=== PATIENT | male | born 1965 ===

== ENCOUNTER 2017-05-27 18:54 | Emergency (ER) | payer OTHER ==
[2017-05-27 19:13] VITALS: TEMP 98.4; O2SAT 98
--- NOTE | 2017-05-27 19:51 | ED PDOC ---
Arrival/HPI - General Chief Complaint: ENT Problem Time Seen by Provider: 05/27/17 19:17 Historian: Patient, Spouse - History of Present Illness Narrative History of Present Illness (Text): 05/27/17 19:46 This 51 yo female presents to this ED c/o right ear pain x 3 months. Patient admits using ear drops for wax last week, but it made the ear problem worse. He has a mild decreased hearing for his right ear. Denies other complains. Time/Duration: Other (see hpi) Context: Home Past Medical History - Provider Review Nursing Documentation Reviewed: Yes - Cardiac Hx Cardiac Disorders: No - Pulmonary Hx Respiratory Disorders: No - Neurological Hx Neurological Disorder: No - HEENT Hx HEENT Disorder: No - Renal Hx Renal Disorder: No - Endocrine/Metabolic Hx Endocrine Disorders: No - Hematological/Oncological Hx Blood Disorders: No - Integumentary Hx Dermatological Disorder: No - Musculoskeletal/Rheumatological Hx Musculoskeletal Disorders: No - Gastrointestinal Hx Gastrointestinal Disorders: No - Genitourinary/Gynecological Hx Genitourinary Disorders: No - Psychiatric Hx Psychophysiologic Disorder: No Hx Substance Use: No Family/Social History - Physician Review Nursing Documentation Reviewed: Yes Family/Social History: No Known Family HX Smoking Status: Never Smoked Hx Alcohol Use: No Hx Substance Use: No Allergies/Home Meds Allergies/Adverse Reactions: Allergies No Known Allergies Allergy (Verified 05/27/17 19:13) Home Medications: Home Meds Medication Instructions Recorded Confirmed No Known Home Med 05/27/17 05/27/17 Review of Systems - Review of Systems Constitutional: Normal. absent: Fatigue, Weight Change, Fevers Eyes: Normal ENT: Other (see hpi) Respiratory: Normal. absent: SOB, Cough, Sputum Cardiovascular: Normal. absent: Chest Pain Gastrointestinal: Normal. absent: Abdominal Pain, Nausea, Vomiting Genitourinary Male: Normal Musculoskeletal: Normal Skin: Normal Neurological: Normal Endocrine: Normal Hemo/Lymphatic: Normal Psychiatric: Normal Physical Exam Vital Signs Temp Pulse Resp BP Pulse Ox 05/27/17 19:54 67 17 122/70 98 05/27/17 19:07 98.4 F 63 18 98 Temperature: Afebrile Blood Pressure: Normal Pulse: Regular Respiratory Rate: Normal Appearance: Positive for: Well-Appearing, Non-Toxic, Comfortable Pain Distress: None Mental Status: Positive for: Alert and Oriented X 3 - Systems Exam Head: Present: Atraumatic, Normocephalic Pupils: Present: PERRL Extroacular Muscles: Present: EOMI Conjunctiva: Present: Normal Ears: Present: Other ((+) right ear cerumen impaction) Mouth: Present: Moist Mucous Membranes Pharnyx: Present: Normal. No: ERYTHEMA, EXUDATE, TONSILS ENLARGED Neck: Present: Normal Range of Motion Respiratory/Chest: Present: Clear to Auscultation, Good Air Exchange, Respiratory Distress. No: Accessory Muscle Use, Wheezes, Decreased Breath Sounds, Rales, Retracting, Rhonchi Cardiovascular: Present: Regular Rate and Rhythm, Normal S1, S2. No: Murmurs Upper Extremity: Present: Normal Inspection, Normal ROM, NORMAL PULSES, Neurovascularly Intact, Capillary Refill < 2s. No: Edema Lower Extremity: Present: Normal Inspection, NORMAL PULSES, Normal ROM, Neurovascularly Intact, Capillary Refill < 2 s. No: Edema, CALF TENDERNESS Neurological: Present: GCS=15, CN II-XII Intact, Speech Normal, Motor Func Grossly Intact, Normal Sensory Function, Normal Cerebellar Funct, Gait Normal Skin: Present: Warm, Dry, Normal Color. No: Rashes Psychiatric: Present: Alert, Oriented x 3 Medical Decision Making ED Course and Treatment: 05/27/17 19:51 Re-evaluation. Patient feels better. Discussed results and plan with patient who expresses understanding. All questions answered and there is agreement with the plan to discharge home with instructions. Patient stable for discharge. Return if symptoms persist or worsen. Re-evaluation Time: 19:51 Reassessment Condition: Re-examined, Improved - Procedure PROCEDURE NOTE (Text): PROCEDURE: CERUMEN REMOVAL Performed by the emergency provider Timeout: A timeout to verify the correct patient, procedure, and site was performed immediately prior to the procedure. Indication: Cerumen impaction Procedure: The cerumen was removed using curette / 60 CC's of NS mixed with Peroxide. Post-procedure: Patient tolerated the procedure well with no immediate complications. The cerumen was removed and TM was visualized. There was no bleeding. Disposition/Present on Arrival - Present on Arrival Any Indicators Present on Arrival: No History of DVT/PE: No History of Uncontrolled Diabetes: No Urinary Catheter: No History of Decub. Ulcer: No History Surgical Site Infection Following: None - Disposition Have Diagnosis and Disposition been Completed?: Yes Diagnosis: Impacted cerumen of right ear Disposition: HOME/ ROUTINE Disposition Time: 19:52 Patient Plan: Discharge Condition: GOOD Discharge Instructions (ExitCare): Cerumen Impaction (ED) Additional Instructions: Terrence private doctor for follow up visit in 1-2 days. return to emergency if symptms worsen. Referrals: PCP,NO [Primary Care Provider] - Follow up with primary [facility] [Outside] - Follow up with primary [facility] [Outside] - Follow up with primary Forms: [employer] ([place]ajik)
[2017-05-27 20:05] VITALS: BP 122/70; PULSE 67; RESP 17
== END 2017-05-27 19:54 | disposition home or self-care (01) ==
LOC: ED 18:54
DX: H61.21 Impacted cerumen, right ear (principal)